=== PATIENT | female | born 1965 | race Asian ===

== ENCOUNTER 2025-03-11 08:15 | Outpatient (CLI) | payer OTHER ==
[2025-03-11 08:57] LABS: Hematocrit 38.9 % (34.9-44.5); Hemoglobin 12.5 g/dL (12.0-15.5); Mean Corpuscular Hemoglobin 28.8 pg (27.0-33.0); Mean Corpuscular Volume 89.6 fL (81.6-98.3); Platelet Count 332 10x3/uL (150-450); Red Blood Cell (RBC) Count 4.34 10x6/uL (3.90-5.03); White Blood Cell (WBC) Count 6.95 10x3/uL (3.5-10.5)
[2025-03-11 09:12] LABS: Anion Gap 11 mmol/L (10-20); BUN (Urea Nitrogen) 14 mg/dL (9.8-20.1); Calc. Creatinine Clearance 0 mL/min (70-130); Calcium 9.4 mg/dL (7.8-10.44); Carbon Dioxide 26 mmol/L (23-31); Chloride 108 mmol/L (98-107); Glucose 99 mg/dL (80-115); Potassium 4.4 mmol/L (3.5-5.1); Sodium 141 mmol/L (136-145)
== END 2025-03-11 08:16 | disposition home or self-care (01) ==
LOC: CSHLAB 08:15
PROVIDERS: ATTEND Surgery
DX: Z01.818 Encounter for other preprocedural examination (principal); Z12.11 Encounter for screening for malignant neoplasm of colon
CPT/HCPCS: 80048; 85027; 93005; 93010

== ENCOUNTER 2025-03-18 07:41 | Day surgery (SDC) | payer OTHER ==
[2025-03-11 08:51] VITALS: BMI 25.5
[2025-03-18] MEDS ORDERED: Lidocaine 2% MPF 10 ML AMP (For Epidural Use) ONE (08:51)
[2025-03-18] MEDS ORDERED: PROPOFOL 20 ML ONE ×2 (08:52→09:23)
[2025-03-18] MEDS ORDERED: Sevoflurane 250 ML INH ANEST BOTTLE ONE (10:00)
== END 2025-03-18 10:10 | disposition home or self-care (01) ==
LOC: CSHSDC 07:41
PROVIDERS: ATTEND Surgery
PROC: 0DBN8ZZ Excision of Sigmoid Colon, Via Natural or Artificial Opening Endoscopic (ICD-10-PCS; principal; 2025-03-18)
DX: Z12.11 Encounter for screening for malignant neoplasm of colon (principal); D12.7 Benign neoplasm of rectosigmoid junction; K64.8 Other hemorrhoids; Z90.49 Acquired absence of other specified parts of digestive tract
CPT/HCPCS: 88305; J2704